=== PATIENT | male | born 1985 | race Caucasian/White ===

== ENCOUNTER 2023-09-25 13:07 | Emergency (ER) | payer OTHER ==
[~2023-09-25] VITALS: Ht 167.6 cm; Wt 79.0 kg
[2023-09-25 13:32] VITALS: O2SAT 99
[2023-09-25] MEDS ORDERED: LIDOCAINE HCL/PF 1% 10 MG/ML 5ML VIAL INFIL ONE (17:30)
[2023-09-25] MEDS ORDERED: BACITRACIN ZINC OINT UDPKT TOP NR (17:41)
[2023-09-25] MEDS ORDERED: CEPH500T MT (18:02)
[2023-09-25] MEDS ORDERED: NAPR-681 PO (18:02)
[2023-09-25] MEDS ORDERED: SULF1TAB48 MT (18:02)
[2023-09-25 19:06] VITALS: BP 123/87; PULSE 60; RESP 19; TEMP 98.8
== END 2023-09-25 19:08 | disposition home or self-care (01) ==
LOC: ER 13:49
DX: S61.216A Laceration without foreign body of right little finger without damage to nail, initial encounter (principal); F12.90 Cannabis use, unspecified, uncomplicated; X58.XXXA Exposure to other specified factors, initial encounter; Y93.89 Activity, other specified; Y92.89 Other specified places as the place of occurrence of the external cause; Y99.8 Other external cause status
CPT/HCPCS: 73140; 99283; J3490; Z7610

== ENCOUNTER 2024-03-11 15:45 | Emergency (ER) | payer OTHER ==
[~2024-03-11] VITALS: Ht 162.6 cm; Wt 79.0 kg
[~2024-03-11 15:45] MED LIST: CEPH500T MT; NAPR-681 PO; SULF1TAB48 MT
[2024-03-11 16:07] VITALS: O2SAT 99
[2024-03-11] MEDS: KETOROLAC 15MG/ML VIAL IM ONE (17:44)
[2024-03-11] MEDS ORDERED: LIDO700A15 TP (17:59)
[2024-03-11] MEDS ORDERED: NAPR-1176 MT (17:59)
[2024-03-11 18:26] VITALS: BP 122/80; PULSE 69; RESP 18; TEMP 98.4
== END 2024-03-11 18:33 | disposition home or self-care (01) ==
LOC: ER 15:45
DX: M94.0 Chondrocostal junction syndrome [Tietze] (principal); F12.10 Cannabis abuse, uncomplicated
CPT/HCPCS: 71101; 96372; 99283; J1885; Z7610

== ENCOUNTER 2024-03-24 15:57 | Emergency (ER) | payer OTHER ==
[~2024-03-24] VITALS: Ht 167.6 cm; Wt 81.0 kg
[~2024-03-24 15:57] MED LIST changes: +LIDO700A15 TP; +NAPR-1176 MT
[2024-03-24 16:16] VITALS: O2SAT 95
[2024-03-24] MEDS ORDERED: LIDO700A15 TP (17:29)
[2024-03-24 17:40] VITALS: BP 123/78; PULSE 78; RESP 18; TEMP 98.1
== END 2024-03-24 18:08 | disposition home or self-care (01) ==
LOC: ER 15:57
DX: S20.211A Contusion of right front wall of thorax, initial encounter (principal); F12.90 Cannabis use, unspecified, uncomplicated; Z98.890 Other specified postprocedural states; X58.XXXA Exposure to other specified factors, initial encounter; Y93.89 Activity, other specified; Y92.89 Other specified places as the place of occurrence of the external cause; Y99.8 Other external cause status
CPT/HCPCS: 71046; 99283

== ENCOUNTER 2024-09-06 20:10 | Emergency (ER) | payer OTHER ==
[~2024-09-06] VITALS: Ht 167.6 cm; Wt 78.0 kg
[2024-09-06 20:31] VITALS: BP 114/84; PULSE 79; RESP 16; TEMP 98.3; O2SAT 97
[2024-09-06] MEDS ORDERED: ACET-2708 MT (22:49)
[2024-09-06] MEDS ORDERED: NAPR-1176 MT (22:49)
[2024-09-06] MEDS ORDERED: CEPH500T MT (22:49)
== END 2024-09-06 23:00 | disposition home or self-care (01) ==
LOC: ER 20:10
DX: L03.113 Cellulitis of right upper limb (principal); Z79.899 Other long term (current) drug therapy
CPT/HCPCS: 99283

== ENCOUNTER 2025-03-26 03:51 | Emergency (ER) | payer OTHER ==
[~2025-03-26] VITALS: Ht 167.6 cm; Wt 77.0 kg
[~2025-03-26 03:51] MED LIST changes: +ACET-2708 MT; +LIDO-53 TP; -LIDO700A15 TP
[2025-03-26 03:57] VITALS: O2SAT 97
[2025-03-26] MEDS ORDERED: CEPH500T MT (04:19)
[2025-03-26] MEDS ORDERED: IBUP-2029 MT (04:19)
[2025-03-26 04:40] VITALS: BP 123/85; PULSE 100; RESP 20; TEMP 36.9; O2SAT 95
== END 2025-03-26 04:46 | disposition home or self-care (01) ==
LOC: ER 03:51
DX: L03.116 Cellulitis of left lower limb (principal)
CPT/HCPCS: 99283

== ENCOUNTER 2025-03-31 15:00 | Emergency (ER) | payer OTHER ==
[~2025-03-31] VITALS: Ht 167.6 cm; Wt 78.0 kg
[~2025-03-31 15:00] MED LIST changes: +IBUP-2029 MT
[2025-03-31 15:09] VITALS: BP 120/75; PULSE 86; RESP 18; TEMP 37.2; O2SAT 99
[2025-03-31] MEDS: LIDOCAINE HCL/PF 1% 10 MG/ML 5ML VIAL INFIL ONE (18:15)
[2025-03-31] MEDS ORDERED: CLIN-194 MT (19:09)
[2025-03-31] MEDS: BACITRACIN ZINC OINT UDPKT TOP ONE (19:26)
[2025-03-31] MEDS: TETANUS, DIPHTHERIA, PERTUSSIS VAC/PF 0.5ML (>10YR OLD) IM ONE (19:28)
== END 2025-03-31 19:58 | disposition home or self-care (01) ==
LOC: ER 15:00
DX: L03.116 Cellulitis of left lower limb (principal); F12.90 Cannabis use, unspecified, uncomplicated; Z79.899 Other long term (current) drug therapy
CPT/HCPCS: 90715; 10060; 90471; 99283; J2003; Z7610 ×2